=== PATIENT | female | born 1935 | race Caucasian/White ===

== ENCOUNTER 2024-01-22 13:54 | Inpatient (IN) | payer MEDICARE, SELFPAY ==
[2024-01-22] VITALS (15 sets, daily range): BP systolic 152–190; BP diastolic 70–88; PULSE 58–75; RESP 16–18; TEMP 36.5; O2SAT 96–98; BMI 26.1
--- NOTE | 2024-01-22 14:25 | DI.RAD.S_ITS ---
PROCEDURE: XR HIP W PEL IF DONE RT 2V INDICATIONS: fall TECHNIQUE: AP pelvis with lateral view(s) of the right hip(s). COMPARISON: [facility], CT, CT PEL WO CON, 01/22/2024, 15:12. [facility], CR, XR CHEST 1V, 01/22/2024, 15:06. FINDINGS: Bones: There is a moderately to prominently displaced comminuted fracture of the intratrochanteric right hip. Impaction fracture fragments can be seen. No hip dislocation can be seen. No fractures of the bones of the pelvis can be seen. Soft tissues: The visualized bowel gas pattern is normal. No suspicious soft tissue calcifications. IMPRESSION: Intratrochanteric right femoral neck fracture. Dictated by: Ravindra George M.D. on 01/22/2024 at 14:59 Approved by: Ravindra George M.D. on 01/22/2024 at 15:01
--- NOTE | 2024-01-22 15:02 | ED_ITS ---
HPI - Extremity Injury (Lower) General Chief Complaint: Extremity Injury, Lower Stated Complaint: GLF/ R hip pain Time Seen by Provider: 01/22/24 15:02 Source: patient and EMS Mode of arrival: EMS History of Present Illness HPI Narrative: 88-year-old woman who lives at home place with advanced dementia has a pulsed form that indicates comfort care only had a witnessed fall in the dining room landing on her right hip with a significant intertrochanteric fracture. She is brought in by medics. She has not oriented to person time and place. He has not complaining of any pain. Has no recollection of the fall. She does have other bruises such as a healing 1 on her chin that she does not know where it came from. Related Data Home Medications Medication Instructions Recorded Confirmed acetaminophen 325 mg capsule 650 mg PO Q6H PRN Pain, Moderate 01/22/24 01/22/24 (Tylenol) escitalopram oxalate 20 mg tablet 20 mg PO DAILY 01/22/24 01/22/24 loperamide 2 mg capsule 2 mg PO QID PRN Diarrhea 01/22/24 01/22/24 (Anti-Diarrheal (loperamide)) magnesium hydroxide 400 mg/5 mL 30 ml PO BEDTIME PRN Constipation 01/22/24 01/22/24 oral suspension (Milk of Magnesia) memantine 5 mg tablet 10 mg PO BID 01/22/24 01/22/24 Allergies Allergy/AdvReac Type Severity Reaction Status Date / Time Penicillins Allergy Rash Verified 01/22/24 15:12 Review of Systems Review of Systems ROS Unobtainable: Unobtainable due to medical condition and Unobtainable due to mental condition Patient History Medical History (Updated 01/22/24 @ 17:29 by Desire Tinsley MD) Advanced dementia Exam Initial Vital Signs Initial Vital Signs: Vital Signs Pulse Rate 70 01/22/24 14:04 Blood Pressure 190/88 H 01/22/24 14:04 Pulse Oximetry 96 01/22/24 14:04 General: Frail-appearing but, in no acute distress. Able to answer direct questions with nonsensical answers, she is able to speak in full sentences with significant confabulation HEENT: Moist mucous membranes, normal sclera with reactive pupils, she is a bruise that appears 3 to 4-day-old over her chin. No other head trauma is appreciated Neck: No midline cervical spine tenderness Respiratory: Lungs are clear to auscultation, no wheezing no rales no rhonchi. Full and symmetrical air movement Cardiac: Regular rate and rhythm no murmurs no bruits Abdomen: Soft, nontender, good bowel tones, no flank pain Pelvis, no tenderness with pelvic ring manipulation. No tenderness along the thoracic or lumbar vertebra with direct palpation. No tenderness with manipulation of her ribcage Skin: Warm and dry, scattered bruises in various stages of healing. Neurologic: She is able to move all extremities Extremities: Right leg is foreshortened and externally rotated. She is able to move her toes. Is not complaining of pain and she is lying in bed. Distal pulses are palpable she does not have any lower extremity edema Psych: Cooperative, significant dementia with no insight into events of the day Course Orders Ordered: ED Orders 01/22/24 14:25 XR hip w pel if done RT 2V Stat 01/22/24 15:03 CT pelvis wo con Stat XR chest 1V Stat 01/22/24 15:04 EKG-12 Lead Stat 01/22/24 15:07 Complete Blood Count AUTO DIFF Stat Comprehensive Metabolic Panel Stat Hydromorphone HCl (Hydromorphone 0.5 Mg Inj) 0.5 mg IV Q15MIN PRN PRN Reason: Pain, Last Admin: 01/22/24 15:22 Dose: 0.5 mg Documented By: MAHENDRA Sodium Chloride (Normal Saline 0.9%) 1,000 mls @ 150 mls/hr IV CONT NEERAJ Last Admin: 01/22/24 15:16 Dose: 150 mls/hr Documented By: MAHENDRA Vital Signs Vital signs: Vital Signs - 8 hr 01/22/24 14:04 01/22/24 14:04 01/22/24 14:12 Pulse Rate 70 71 Pulse Rate [Right Dorsalis Pedis] Respiratory Rate 18 Blood Pressure 190/88 H 190/88 H Pulse Oximetry 96 98 Oxygen Delivery Method Room Air 01/22/24 14:25 01/22/24 14:30 01/22/24 14:47 Pulse Rate 68 74 Pulse Rate [Right Dorsalis Pedis] 70 Respiratory Rate Blood Pressure Pulse Oximetry 98 98 Oxygen Delivery Method 01/22/24 14:47 01/22/24 15:00 01/22/24 15:00 Pulse Rate 69 Pulse Rate [Right Dorsalis Pedis] Respiratory Rate Blood Pressure 187/79 H 167/76 H Pulse Oximetry 98 Oxygen Delivery Method 01/22/24 15:30 01/22/24 16:00 Pulse Rate 67 73 Pulse Rate [Right Dorsalis Pedis] Respiratory Rate Blood Pressure Pulse Oximetry 98 98 Oxygen Delivery Method MDM - Extremity Injury (Lower) Lab Data 01/22/24 15:07 01/22/24 15:07 Labs: Lab Results 01/22/24 Range/Units 15:07 WBC 14.2 H (4.5-11.0) X10^3/uL RBC 4.20 (4.0-5.2) X10^6/uL Hgb 12.8 (12.0-16.0) g/dL Hct 37.7 (36-46) % MCV 89.8 (80-100) fL MCH 30.5 (26-34) PG MCHC 34.0 (30-36) % RDW 14.1 (11.6-14.8) % Plt Count 236 (150-400) X10^3/uL Neut % (Auto) 80.8 H (50-75) % Lymph % (Auto) 7.5 L (25-40) % [place] % (Auto) 10.4 (3-14) % Eos % (Auto) 0.7 L (2-4) % Baso % (Auto) 0.6 (0-2) % Neut # (Auto) 97143 H (2178-9569) /uL Lymph # (Auto) 1100 (5475-0354) /uL [place] # (Auto) 1500 H (0-900) /uL Eos # (Auto) 100 (0-450) /uL Baso # (Auto) 100 (0-100) /uL Sodium 130 L (137-145) mmol/L Potassium 4.3 (3.4-5.1) mmol/L Chloride 99 (98-107) mmol/L Carbon Dioxide 24 (22-32) mmol/L BUN 19 H (7-17) mg/dL Creatinine 0.60 (0.52-1.04) mg/dL Estimated GFR > 60 (>60) mL/min BUN/Creatinine Ratio 31.7 H (6-22) Glucose 125 H (80-110) mg/dL Calcium 9.1 (8.4-10.2) mg/dL Total Bilirubin 1.3 (0.2-1.3) mg/dL AST 23 (14-36) IU/L ALT 16 (<35) IU/L Alkaline Phosphatase 89 (38-126) U/L Total Protein 6.8 (6.3-8.2) g/dL Albumin 4.0 (3.5-5.0) g/dL Globulin 2.8 (1.7-4.1) g/dL Albumin/Globulin Ratio 1.4 (1.0-2.8) MDM Narrative Medical decision making narrative: CC: Witnessed fall in dementia facility landing on her right hip Complicating co-morbidities: Advanced dementia Data collected from: Medics Social determinants of health that may influence the patients condition: Advanced dementia. Patient does have POLST form that indicates comfort focused treatment only Medical records reviewed: Medical records from home place are reviewed. Patient is on escitalopram and memantine, no blood thinners. No other medical records are available Differential considered: Hip fracture, pelvic fracture, contusion Exam documented above, pertinent findings include: 88-year-old woman who is significantly demented, is not oriented to person time or place. Does not recall a fall is not complaining of any pain. Her right hip is externally rotated and foreshortened. She has a bruise over her chin that looks like it has a couple of days old Lab Test results independently reviewed as above. Pertinent findings: CBC shows Mild leukocytosis at 14.2 with 80% neutrophils no anemia Chemistries show Mild hyponatremia at 130 Independently reviewed EKG: Atrial fibrillation at a rate of 73. No acute ischemia Imaging studies independently reviewed: CT scan of the pelvis shows impacted, comminuted, moderately displaced moderately angulated fracture of the intratrochanteric right femoral neck. Hip x-ray shows an intertrochanteric right femoral neck fracture with prominently displaced and impacted fragments seen. CT scan is ordered in anticipation of operative management Chest x-ray is unremarkable Consultations: Care is reviewed with hospitalist patient will be admitted. Discussed with Dr. Curtis. Unsure if operative intervention will be appropriate or not. Dr. Schumacher is contacted and case is discussed with Dr. Curtis Treatments: Patient has not required any pain control Family discussion: Due to the patient's advanced dementia phone call to her sister who has medical power of supervisor [employer] shop, Domonique sainz at [phone]. This sisters involvement seems to be minimal and her overall understanding and cognitive processing of questions being asked regarding surgical intervention or not do not offer help in overall decision-making. Sister clearly under 2 that this was a big decision, also recognizes that her sister is declining and isn't sure that the operative risk is worth the minimal benefit. Phone call to patient's personal friend, Stephany Bailey who is her financial [id number] at [phone], cell #[phone]. This friend is unwilling to contribute to decision-making and defers to Domonique. It seems like they have a contentious relationship, neither 1 knows the others phone number. Stephany was going to talk with another close friend of the patient's. At this point [place] notes that her cognitive decline is significant, she does not tend to do much more than sit in a chair. Decision as to operative intervention or not is in limbo as of 530 this evening. Patient will be admitted and this discussion will need to continue. Discussion: 88-year-old woman with advanced dementia and a comminuted, displaced intertrochanteric fracture of the right hip after a fall. Her baseline status appears to be significantly demented with minimal overall activity. With her entire visit in the emergency department she has not seemed to notice that she has not moved at all on her gurney and is not complaining of any hip pain. At this time it is not clear whether operative intervention will be the best choice for this lady or whether conservative management and pain control if needed maybe more appropriate. The discussion we will continue with the inpatient team. Discharge Plan Departure Patient Disposition: Admitted As Inpatient Clinical Impression: Closed hip fracture Qualifiers: Encounter type: initial encounter Laterality: right Qualified Code(s): S72.001A - Fracture of unspecified part of neck of right femur, initial encounter for closed fracture Advanced dementia Qualifiers: Dementia type: unspecified type Admit Date/Time: 01/22/24 17:06 Admit Provider: Lance Curtis
--- NOTE | 2024-01-22 15:03 | DI.CT.S_ITS ---
PROCEDURE: CT PEL WO CON INDICATIONS: operative planning Right hip fracture TECHNIQUE: Noncontrast 3 mm axial sections acquired through the bony pelvis, with coronal and sagittal reformatting. COMPARISON: [facility], CR, XR CHEST 1V, 01/22/2024, 15:06. [facility], CR, XR HIP W PEL IF DONE RT 2V, 01/22/2024, 14:26. FINDINGS: Image quality: Excellent. Bones: There is an impacted, comminuted, moderately displaced moderately angulated fracture of the intratrochanteric right femoral neck. No hip dislocation can be seen. No fractures of the bones of the pelvis can be seen. Generalized degenerative changes are seen. No suspicious lytic or blastic lesions are seen. Soft tissues: Associated soft tissue swelling is seen. No dilated loops of small bowel are seen. Distal colonic diverticulosis is seen, without findings of active diverticulitis. An atrophic uterus is seen, with calcified fibroids. No adnexal masses are seen on either side. No bladder wall thickening can be seen. IMPRESSION: Intratrochanteric right femoral neck fracture, with associated surrounding soft tissue swelling. Dictated by: Ravindra Georeg M.D. on 01/22/2024 at 15:34 Approved by: Ravindra George M.D. on 01/22/2024 at 15:36
--- NOTE | 2024-01-22 15:03 | DI.RAD.S_ITS ---
PROCEDURE: XR CHEST 1V INDICATIONS: Trauma TECHNIQUE: One view of the chest was acquired. COMPARISON: [facility], CR, XR HIP W PEL IF DONE RT 2V, 01/22/2024, 14:26. [facility], CT, CT PEL WO CON, 01/22/2024, 15:12. FINDINGS: Surgical changes and devices: None. Lungs and pleura: On this semiupright portable chest examination, no large pneumothorax or large pleural effusions are seen. No focal infiltrates are seen. The lungs are mildly hyperexpanded. Mediastinum: The cardiac contours are within normal limits. The aorta demonstrates calcification and tortuosity. Bones and chest wall: No suspicious bony lesions. Age-appropriate bony degenerative changes are seen. Overlying soft tissues appear unremarkable. IMPRESSION: Portable chest within normal limits for age. Dictated by: Ravindra George M.D. on 01/22/2024 at 15:07 Approved by: Ravindra George M.D. on 01/22/2024 at 15:07
[2024-01-22 15:14] LABS: Add Manual Diff / Slide Review NO; Basophils Absolute Auto 100 /uL (0-100); Basophils Percent Auto 0.6 % (0-2); Eosinophils Absolute Auto 100 /uL (0-450); Eosinophils Percent Auto 0.7 % (2-4); Hematocrit 37.7 % (36-46); Hemoglobin 12.8 g/dL (12.0-16.0); Lymphocytes Absolute Auto 1100 /uL (1100-4500); Lymphocytes Percent Auto 7.5 % (25-40); Mean Corpuscular Hemoglobin 30.5 PG (26-34); Mean Corpuscular Volume 89.8 fL (80-100); Monocytes Absolute Auto 1500 /uL (0-900); Monocytes Percent Auto 10.4 % (3-14); Neutrophils Absolute Auto 11500 /uL (1500-7000); Neutrophils Percent Auto 80.8 % (50-75); Platelet Count 236 X10^3/uL (150-400); Red Cell Distribution Width 14.1 % (11.6-14.8); White Blood Cell Count 14.2 X10^3/uL (4.5-11.0)
[2024-01-22] MEDS: SODIUM CHLORIDE 0.9% 1,000 ML 150 ML IV (15:16)
[2024-01-22] MEDS: HYDROMORPHONE 0.5 MG INJ IV (15:22)
[2024-01-22 15:26] LABS: Alanine Aminotransferase 16 IU/L (<35); Albumin Globulin Ratio 1.4 (1.0-2.8); Alkaline Phosphatase 89 U/L (38-126); Aspartate Aminotransferase 23 IU/L (14-36); BUN Creatinine Ratio 31.7 (6-22); Bilirubin Total 1.3 mg/dL (0.2-1.3); Blood Urea Nitrogen 19 mg/dL (7-17); Calcium 9.1 mg/dL (8.4-10.2); Carbon Dioxide 24 mmol/L (22-32); Chloride 99 mmol/L (98-107); Estimated Glomerular Filt Rate > 60 mL/min (>60); Globulin 2.8 g/dL (1.7-4.1); Glucose 125 mg/dL (80-110); HEMOLYSIS 32 (0-50); Potassium 4.3 mmol/L (3.4-5.1); Sodium 130 mmol/L (137-145); Total Protein 6.8 g/dL (6.3-8.2)
--- NOTE | 2024-01-22 16:17 | PM.HP.1 ---
History of Present Illness History of Present Illness Date Patient Seen: 01/22/24 Chief complaint: GLF/ R hip pain Narrative: The patient is an 88-year-old female who presents with a ground level fall and hip fracture. She denies any other injury. She states that she lives alone. She appears to have some degree of cognitive impairment. Laboratory testing also reveals a leukocytosis and a sodium of 130. She is mild hyperglycemia. She is also hypertensive initially at 190/88. She has fairly severe cognitive impairment and apparently stays in a memory care unit in [place]. She is noted to have probable atrial fibrillation in the emergency department. Her chronic medications appear to include amantadine and citalopram. The patient denies any complaints other than her right hip. She really can not detail the nature of the fall. She denies any dyspnea or chest pain. Discussed with orthopedics, Dr. Schumacher. The earliest that she would have repair would be tomorrow evening. She can be NPO after being evaluated tomorrow morning from his opinion. [facility] Medical History (Updated 01/22/24 @ 17:49 by Maryuri Lund RN) History of depression Advanced dementia Meds Home Medications and Allergies Home Medications Medication Instructions Recorded Confirmed Type acetaminophen 325 mg capsule 650 mg PO Q6H PRN Pain, Moderate 01/22/24 01/22/24 History (Tylenol) escitalopram oxalate 20 mg tablet 20 mg PO DAILY 01/22/24 01/22/24 History loperamide 2 mg capsule 2 mg PO QID PRN Diarrhea 01/22/24 01/22/24 History (Anti-Diarrheal (loperamide)) magnesium hydroxide 400 mg/5 mL 30 ml PO BEDTIME PRN Constipation 01/22/24 01/22/24 History oral suspension (Milk of Magnesia) memantine 5 mg tablet 10 mg PO BID 01/22/24 01/22/24 History Allergies Allergy/AdvReac Type Severity Reaction Status Date / Time Penicillins Allergy Rash Verified 01/22/24 15:12 Review of Systems Review of Systems Narrative: All else reviewed and otherwise unremarkable except as noted in the history and physical. Exam Vital Signs (past 8 hours): - 01/22/24 14:04 01/22/24 14:04 01/22/24 14:12 Pulse Rate 70 71 Pulse Rate [Right Dorsalis Pedis] Respiratory Rate 18 Blood Pressure 190/88 H 190/88 H Pulse Oximetry 96 98 Oxygen Delivery Method Room Air 01/22/24 14:25 01/22/24 14:30 01/22/24 14:47 Pulse Rate 68 74 Pulse Rate [Right Dorsalis Pedis] 70 Respiratory Rate Blood Pressure Pulse Oximetry 98 98 Oxygen Delivery Method 01/22/24 14:47 01/22/24 15:00 01/22/24 15:00 Pulse Rate 69 Pulse Rate [Right Dorsalis Pedis] Respiratory Rate Blood Pressure 187/79 H 167/76 H Pulse Oximetry 98 Oxygen Delivery Method 01/22/24 15:30 01/22/24 16:00 Pulse Rate 67 73 Pulse Rate [Right Dorsalis Pedis] Respiratory Rate Blood Pressure Pulse Oximetry 98 98 Oxygen Delivery Method Oxygen Delivery Method Room Air Narrative Exam Narrative: NAD, alert and oriented, fluent speech, calm. Normocephalic skull, EOMI, anicteric sclera, symmetric pupils. Oropharynx unremarkable, no droop. Neck supple, midline trachea, no adenopathy. Lungs clear, normal rate and effort. Heart regular, no murmur gallop or rub. Abdomen is soft, non distended and non tender. Extremities are free of edema. She has internal rotation of the right hip. Skin is free of rash or lesions. Joints are not swollen or deformed. Judgment appears to be normal. Objective Imaging Right hip x-ray: Radiologist's impression: Reveals a right femoral neck fracture. Labs 01/22/24 15:07 01/22/24 15:07 Labs: Laboratory Results - last 24 hr 01/22/24 15:07 WBC 14.2 H RBC 4.20 Hgb 12.8 Hct 37.7 MCV 89.8 MCH 30.5 MCHC 34.0 RDW 14.1 Plt Count 236 Neut % (Auto) 80.8 H Lymph % (Auto) 7.5 L [place] % (Auto) 10.4 Eos % (Auto) 0.7 L Baso % (Auto) 0.6 Neut # (Auto) 91638 H Lymph # (Auto) 1100 [place] # (Auto) 1500 H Eos # (Auto) 100 Baso # (Auto) 100 Sodium 130 L Potassium 4.3 Chloride 99 Carbon Dioxide 24 BUN 19 H Creatinine 0.60 Estimated GFR > 60 BUN/Creatinine Ratio 31.7 H Glucose 125 H Calcium 9.1 Total Bilirubin 1.3 AST 23 ALT 16 Alkaline Phosphatase 89 Total Protein 6.8 Albumin 4.0 Globulin 2.8 Albumin/Globulin Ratio 1.4 Assessment & Plan Assessment & Plan narrative: 1. Right femoral neck fracture, present on admission and active. 2. Ground level fall, present on admission and active. 3. Probable hypovolemic hyponatremia, present on admission and active 4. Mild hyperglycemia, present on admission and active. 5. Possible chronic atrial fibrillation not on anticoagulation, present on admission and active. 6. Severe dementia, present on admission and active. PLAN: -orthopedic consult for operative repair of fracture. -DVT prophylaxis. -analgesia. -fluid resuscitation and monitor sodium. Patient is full resuscitation. Anticipate discharge to half-way facility for rehabilitation after surgery. Her proxy decision maker is not currently identified. A pulsed indicates comfort measures, she can not speak to this. Patient was admitted to inpatient, anticipation of 2 midnights of medically necessary hospital level care. Time Spent With Patient Time with patient: 30 to 49 minutes with 50% spent counseling/coordinating care Quality MIPS - Admit I confirm the patient?s Advance Care Plan is present, Code status is documented, Surrogate decision maker is in patient?s record [If Yes, STOP here]: Yes MIPS - Meds 'Current medications' to include all prescriptions, [id number] products, herbals, cannabis/cannabidiol products, and vitamin/mineral/dietary (nutritional) supplements. I have utilized all available resources to obtain, update, or review the patient?s current medications. [If Yes, STOP here]: Yes
--- NOTE | 2024-01-22 19:23 | PC.NURSE ---
Patient admitted to room 221, she has a fx r.hip. She fell at home place around lunch time and this was a witnessed fall. Patient has some dementia and is pleasantly forgetful. She has foul smelling urine. aware and ordered some antibiotics and we will also get a urine sample sent down. She is comfortable at this time and has NS at 50cc/hr infusing.
[2024-01-22] MEDS: HEPARIN 5,000 UNIT/ML VIAL 5000 UNIT SUBCUT (20:13)
[2024-01-22] MEDS: MEMANTINE HCL 5 MG TABLET 10 MG PO (20:13)
[2024-01-22] MEDS: SENNOSIDES 8.6 MG TABLET 17.2 MG PO (20:13)
[2024-01-22] MEDS: cefTRIAXone 1,000 MG in SODIUM CHLORIDE 0.9% 100 ML 200 MG IV (20:14)
[2024-01-22] MEDS: OXYCODONE IR 5 MG TABLET PO (20:14)
[2024-01-22] MEDS: SODIUM CHLORIDE 0.9% 1,000 ML 50 ML IV (20:29)
[2024-01-23] VITALS (14 sets, daily range): BP systolic 118–157; BP diastolic 51–76; PULSE 77–92; RESP 12–18; TEMP 36.1–37.2; O2SAT 94–98; BMI 26.1
--- NOTE | 2024-01-23 | DI.RAD.S_ITS ---
PROCEDURE: XR HIP W PEL IF DONE RT 4V INDICATIONS: IM NAILING RIGHT FEMUR TECHNIQUE: Multiple intraoperative views of the right hip. COMPARISON: [facility], [facility], XR HIP W PEL IF DONE RT 2V, 01/22/2024, 14:26. FINDINGS: Bones: Intraoperative images during ORIF of a right intertrochanteric fracture. IMPRESSION: Intraoperative views during ORIF of a right intertrochanteric fracture. Dictated by: Golden Holland M.D. on 01/23/2024 at 20:38 Approved by: Golden Holland M.D. on 01/23/2024 at 20:39
--- NOTE | 2024-01-23 01:30 | PC.NURSE ---
Patient has not voided since coming up to floor. This bond writer did a bladder scan and got 687mL. RN notified
[2024-01-23 03:07] LABS: Appearance Urine UA CLOUDY; Bilirubin Urine UA NEGATIVE (NEGATIVE); Color Urine UA YELLOW; Glucose Urine UA NEGATIVE (Negative); Ketones Urine UA NEGATIVE (NEGATIVE); Leukocyte Esterase Urine UA 2+ (NEGATIVE); Nitrite Urine UA POSITIVE (Negative); Occult Blood Urine UA TRACE-INTACT (Negative); Protein Urine UA NEGATIVE (Negative); Urobilinogen Urine UA 0.2 E.U./dL (0.2)
[2024-01-23 03:23] LABS: RBC Urine None Seen (0-5/HPF); Urine Volume 10mL (spun); WBC Urine 10-30/HPF (0-5/HPF)
[2024-01-23 03:24] LABS: Bacteria Urine Many (>30); Culture Indicated Urine Specimen Cultured; Squamous Epithelial Cell Urine 0-1 /HPF (0-5/HPF)
[2024-01-23 04:46] LABS: Add Manual Diff / Slide Review NO; Basophils Absolute Auto 0 /uL (0-100); Basophils Percent Auto 0.2 % (0-2); Eosinophils Absolute Auto 0 /uL (0-450); Hematocrit 31.4 % (36-46); Hemoglobin 10.8 g/dL (12.0-16.0); Lymphocytes Absolute Auto 900 /uL (1100-4500); Lymphocytes Percent Auto 6.3 % (25-40); Mean Corpuscular HGB Conc 34.3 % (30-36); Mean Corpuscular Hemoglobin 30.8 PG (26-34); Mean Corpuscular Volume 89.9 fL (80-100); Monocytes Absolute Auto 2000 /uL (0-900); Monocytes Percent Auto 13.8 % (3-14); Neutrophils Absolute Auto 11700 /uL (1500-7000); Neutrophils Percent Auto 79.7 % (50-75); Platelet Count 199 X10^3/uL (150-400); Red Blood Cell Count 3.49 X10^6/uL (4.0-5.2); White Blood Cell Count 14.7 X10^3/uL (4.5-11.0)
[2024-01-23 04:59] LABS: BUN Creatinine Ratio 32.8 (6-22); Blood Urea Nitrogen 20 mg/dL (7-17); Calcium 8.6 mg/dL (8.4-10.2); Carbon Dioxide 25 mmol/L (22-32); Chloride 101 mmol/L (98-107); Estimated Glomerular Filt Rate > 60 mL/min (>60); Glucose 151 mg/dL (80-110); HEMOLYSIS < 15 (0-50); Potassium 4.2 mmol/L (3.4-5.1); Sodium 131 mmol/L (137-145)
--- NOTE | 2024-01-23 05:39 | PC.NURSE ---
Pt had a bladder scan of 687, notified, orders taken to insert a kirkland catheter. Pt friend Stephany Bailey came in today to drop off Health care directive, Medical durable power of workers compensation defense attorney and Financial power of workers compensation defense attorney. He phone number is [phone]. According to Stephany pt's sister is the DPOA and is she is not involve in patients care and would not make any health decisions.
--- NOTE | 2024-01-23 08:01 | PM.CN ---
History of Present Illness Consult details Date Patient Seen: 01/23/24 Time Patient Seen: 08:01 Chief complaint: GLF/ R hip pain Narrative: 88-year-old female suffers from dementia fell resulting in an injury of her right hip. When talking to the patient today she recalls falling but states that she did not hurt her hip denies any hip pain does not seem realize that she sustained a significant fracture to her right hip. Unsure what her ambulatory status was before fall. Patient unable to tell me. Meds Home Medications and Allergies Home Medications Medication Instructions Recorded Confirmed Type acetaminophen 325 mg capsule 650 mg PO Q6H PRN Pain, Moderate 01/22/24 01/22/24 History (Tylenol) escitalopram oxalate 20 mg tablet 20 mg PO DAILY 01/22/24 01/22/24 History loperamide 2 mg capsule 2 mg PO QID PRN Diarrhea 01/22/24 01/22/24 History (Anti-Diarrheal (loperamide)) magnesium hydroxide 400 mg/5 mL 30 ml PO BEDTIME PRN Constipation 01/22/24 01/22/24 History oral suspension (Milk of Magnesia) memantine 5 mg tablet 10 mg PO BID 01/22/24 01/22/24 History Allergies Allergy/AdvReac Type Severity Reaction Status Date / Time Penicillins Allergy Rash Verified 01/22/24 15:12 Exam Vital Signs (past 8 hours): - 01/23/24 03:00 Temperature 97.1 F L Pulse Rate 80 Respiratory Rate 16 Blood Pressure 121/68 Pulse Oximetry 96 Oxygen Flow Rate 0 Oxygen Delivery Method Room Air Oxygen Flow Rate 0 Narrative Exam Narrative: On exam right leg is held in a shortened and rotation position. No pain with range of motion of the left leg. No sign of any swelling or instability to bilateral knees or ankles. Positive dorsiflexion and plantar flexion. Palpable pedal pulses. Skin is intact compartments are soft. Objective Labs 01/23/24 04:20 01/23/24 04:20 Labs: Laboratory Results - last 24 hr 01/22/24 01/23/24 01/23/24 15:07 02:48 04:20 WBC 14.2 H 14.7 H RBC 4.20 3.49 L Hgb 12.8 10.8 L Hct 37.7 31.4 L MCV 89.8 89.9 MCH 30.5 30.8 MCHC 34.0 34.3 RDW 14.1 14.0 Plt Count 236 199 Neut % (Auto) 80.8 H 79.7 H Lymph % (Auto) 7.5 L 6.3 L [place] % (Auto) 10.4 13.8 Eos % (Auto) 0.7 L 0.0 L Baso % (Auto) 0.6 0.2 Neut # (Auto) 31711 H 16124 H Lymph # (Auto) 1100 900 L [place] # (Auto) 1500 H 2000 H Eos # (Auto) 100 0 Baso # (Auto) 100 0 Sodium 130 L 131 L Potassium 4.3 4.2 Chloride 99 101 Carbon Dioxide 24 25 BUN 19 H 20 H Creatinine 0.60 0.61 Estimated GFR > 60 > 60 BUN/Creatinine Ratio 31.7 H 32.8 H Glucose 125 H 151 H Calcium 9.1 8.6 Total Bilirubin 1.3 AST 23 ALT 16 Alkaline Phosphatase 89 Total Protein 6.8 Albumin 4.0 Globulin 2.8 Albumin/Globulin Ratio 1.4 Urine Color Yellow Urine Appearance Cloudy Urine pH 7.0 Ur Specific [place] 1.020 Urine Protein Negative Urine Glucose (UA) Negative Urine Ketones Negative Urine Occult Blood Trace-intact Urine Nitrate Positive H Urine Bilirubin Negative Urine Urobilinogen 0.2 Ur Leukocyte Esterase 2+ H Urine RBC None seen Urine WBC 10-30/hpf H Ur Squamous Epith Cells 0-1 /hpf Urine Bacteria Many (>30) H Ur Culture Indicated? Specimen cultured Vol Urine Centrifuged 10ml (spun) [facility] Medical History History of depression Advanced dementia Social History household members: none Tobacco & Substance Use Smoking Status: Never smoker alcohol intake: current Assessment & Plan Assessment & Plan narrative: 88-year-old female with dementia status post fall resulting in a comminuted intertrochanteric proximal femur fracture on the right. Based on the fracture pattern this would require surgical intervention. But will also need approval from her power of employment law attorney if they can be reached. Patient will need to be NPO at this time pending possible surgery if patient is cleared for surgery and the power of employment law attorney agrees to proceed with surgical intervention.
[2024-01-23] MEDS: ESCITALOPRAM 10 MG TABLET 20 MG PO (08:31)
[2024-01-23] MEDS: MEMANTINE HCL 5 MG TABLET 10 MG PO ×2 (08:31→21:52)
[2024-01-23] MEDS: SODIUM CHLORIDE 0.9% 1,000 ML 50 ML IV ×2 (08:32→18:20)
--- NOTE | 2024-01-23 09:23 | CM.DANOTE ---
Addendum entered by CARLOTA Castelan 01/23/24 11:31: ADD: SW met bedside with pt and her good local friend/financial POA Stephany ([phone]) and Stephany states she also feels pt should have surgery but aware that sister/medical POA Domonique will need to give her consent once Ortho calls. Discussed with Stephany the process post surgery with PT/OT towards determining return to [facility] vs SNF. BF Original Note: Patient is an 88 yo female who was admitted on 01/22/24 for GLF/Fx. Pt has MCR for insurance and her PCP is not listed. EMR was reviewed. Per MD, pt with GLF at her facility and hip fx and pt with hx of dementia and UTI. Ortho Consult pending, recommending surgical intervention but need to confirm with medical POA. SW received a call from Tanya at [facility] in [place] ([phone]) and she confirms pt is a resident there for the past 5 months and ambulates independently without DME and pt gets assist with meds, meal prep, and showering although pt does not like to shower or change her clothes although she could independently manage clothing changes herself. Pt pleasant and cooperative at baseline but with moderate dementia. Tanya updated on awaiting confirmation of hip surgery and then PT/OT to determine return with HH vs SNF and they would be agreeable with considering pt return pending her mobility and assist needs. Tanya confirms medical POA is sister Domonique who has been very involved and available for communication and financial POA is friend Stephany. MOISES confirmed copies of medical POA as Domonique, financial POA as Stephany, and advanced directives in pt chart and scanned into EMR. MOISES spoke to pt's sister/POA Domonique and updated on above and she is still waiting from a call from Ortho to discuss surgery risks and benefits but she confirms pt was quite mobile at baseline and likely would want surgery to increase potential for ongoing quality of life and mobility. MOISES explained SNF vs [facility] with HH pending PT/OT and Domonique denies pt having any hx of SNF in the past. MOISES provided the SNF Choice list via phone and sister confirms that currently her preference would be [facility] or [facility] due to location. PASRR done in anticipation of SNF, exempted hospital discharge. If SNF at d/c, will need MD signature and be faxed to [facility] coordinator just for review. Plan: SW to follow closely today to confirm if DPOA agreeable with surgery and then PT/OT eval and recommendations to determine SNF vs [facility] with HH. SW to coordinate closely with sister DPRICKY Youssef and Tanya at [facility]. CARLOTA Castelan Discharge Planning/Care Management CM Discharge Assessment Start: 01/23/24 09:09 Freq: Status: Active Protocol: Document 01/23/24 09:09 BF (Rec: 01/23/24 09:23 [id number]) Discharge Planning Assessment Assigned Wool Washer CARLOTA Fierro DPOA/Assigned Designee Name sister Domonique Contact Information [phone] Advance Directives? Yes: pt could not answer Advance Directives on File Yes History Provided By Patient,Family Member,Medical Record Has Patient been admitted in last 30 No days? Prior Living Arrangements Assisted Living Comment [facility] Household Members none Type of transporation used prior to Relies on Others admit Facility Name Admitted From: [facility] Independent with ADL's No Is patient alert and oriented? No Needs Assistance With Bathing,Meal Prep,Managing Medications,Home Chores / Shopping Caregiver for Another No Comment walks independently with no DME Patient/Family Preference [facility]dc Facility,Home with Home Health Comment SNF vs [facility] with HH pending progress post surg Barriers to Discharge No Discharge Plan [facility] Facility [facility] Physical Therapy Transportation Arrangement facility van if SNF, friend if return to [facility] Additional Comment Pending surgery and then PT/OT recommendations Medicare Choice List Provided Yes Medicare choice list reviewed on family electronic tablet with SNF/HH Preference [facility] or [place] Has Agency SNF been contacted Yes Whiteboard Updated in Patient Room with Yes name and ext. # of Wool Washer Review Status In Process Please Provide Date Initial DC 01/23/24 Assessment Was Performed Next Review Type Continued Stay Review
--- NOTE | 2024-01-23 09:50 | PT-OP ANOTE ---
Hold pt, per ortho consult, pt may require surgery. Surgeon is contacting the power of energy attorney. Hold until decision is made w/ortho.
--- NOTE | 2024-01-23 10:25 | OT.IPNOTE ---
OT eval and treat order received. Pt is planned for OR today with hip fx. Will discharge order and await new order after sx.
[2024-01-23] MEDS: ACETAMINOPHEN 325 MG TABLET 650 MG PO (10:53)
--- NOTE | 2024-01-23 15:03 | PM.PN.1 ---
Subjective Subjective Interval history: 88 F with PMH of dementia admitted with a hip fx. She has no complaints this morning, cannot recall why she is in the hospital. Denies pain at her hip today. Exam Vital Signs (past 8 hours): - 01/23/24 09:03 Temperature 98.9 F Pulse Rate 85 Respiratory Rate 18 Blood Pressure 118/63 Pulse Oximetry 97 Oxygen Flow Rate 0 Oxygen Delivery Method Room Air Oxygen Flow Rate 0 Narrative Exam Narrative: Gen: no acute distress Pulm: CTA B/l, no distress CV: RRR no m/r/g Abd: S NT ND Ext: no edema Objective Labs 01/23/24 04:20 01/23/24 04:20 Labs: Laboratory Results - last 24 hr 01/22/24 01/23/24 01/23/24 15:07 02:48 04:20 WBC 14.2 H 14.7 H RBC 4.20 3.49 L Hgb 12.8 10.8 L Hct 37.7 31.4 L MCV 89.8 89.9 MCH 30.5 30.8 MCHC 34.0 34.3 RDW 14.1 14.0 Plt Count 236 199 Neut % (Auto) 80.8 H 79.7 H Lymph % (Auto) 7.5 L 6.3 L [place] % (Auto) 10.4 13.8 Eos % (Auto) 0.7 L 0.0 L Baso % (Auto) 0.6 0.2 Neut # (Auto) 59312 H 63657 H Lymph # (Auto) 1100 900 L [place] # (Auto) 1500 H 2000 H Eos # (Auto) 100 0 Baso # (Auto) 100 0 Sodium 130 L 131 L Potassium 4.3 4.2 Chloride 99 101 Carbon Dioxide 24 25 BUN 19 H 20 H Creatinine 0.60 0.61 Estimated GFR > 60 > 60 BUN/Creatinine Ratio 31.7 H 32.8 H Glucose 125 H 151 H Calcium 9.1 8.6 Total Bilirubin 1.3 AST 23 ALT 16 Alkaline Phosphatase 89 Total Protein 6.8 Albumin 4.0 Globulin 2.8 Albumin/Globulin Ratio 1.4 Urine Color Yellow Urine Appearance Cloudy Urine pH 7.0 Ur Specific [place] 1.020 Urine Protein Negative Urine Glucose (UA) Negative Urine Ketones Negative Urine Occult Blood Trace-intact Urine Nitrate Positive H Urine Bilirubin Negative Urine Urobilinogen 0.2 Ur Leukocyte Esterase 2+ H Urine RBC None seen Urine WBC 10-30/hpf H Ur Squamous Epith Cells 0-1 /hpf Urine Bacteria Many (>30) H Ur Culture Indicated? Specimen cultured Vol Urine Centrifuged 10ml (spun) [facility] Medical History History of depression Advanced dementia Social History household members: none Smoking Status: Never smoker alcohol intake: current Assessment & Plan Assessment & Plan narrative: 1. Right femoral neck fracture, present on admission and active. 2. Ground level fall, present on admission and active. 3. Probable hypovolemic hyponatremia, present on admission and active 4. Mild hyperglycemia, present on admission and active. 5. Possible chronic atrial fibrillation not on anticoagulation, present on admission and active. 6. Severe dementia, present on admission and active. 7. Possible acute cystitis PLAN: -orthopedic consult for operative repair of fracture, plan hopeful for today. -DVT prophylaxis. -analgesia. -fluid resuscitation and monitor sodium, improved Na from 130 to 131. Will continue fluids while NPO, monitor after surgery. -UA positive, will treat with ceftriaxone for 3 days. Patient is DNR Anticipate discharge to [facility] facility for rehabilitation after surgery. Patient has DPOA on file, Domonique, sister Patient was admitted to inpatient, anticipation of 2 midnights of medically necessary hospital level care. Discussed with case managment and bedside staff along with previous hospitalist on duty to formulate the above assessment and plan.
--- NOTE | 2024-01-23 18:31 | SUR.OPER ---
Head on pillow. Supine on fracture table with operative leg secured in traction. Other leg secured on leg zimmerman padded with gel. Right arm across chest, secured with tape. Left arm extended <90 degrees on padded arm board, secured with foam strap. dr. Schumacher present for and approved of positioning.
--- NOTE | 2024-01-23 18:31 | PM.PREOP ---
Pre-operative Note Interval Note History & Physical reviewed/Exam performed by Physician: Yes Changes to H&P: No
[2024-01-23] MEDS: LIDOCAINE 1% W/EPI 20 ML INJ (19:33)
[2024-01-23] MEDS: BUPIVACAINE 0.5% (PF) 30 ML, EPINEPHrine 0.15 MG INJ (19:57)
--- NOTE | 2024-01-23 20:23 | PM.OP.1 ---
Operative Date/Time/Diagnoses Date of procedure: 01/23/24 Time of procedure: 19:00 Pre-op diagnosis: Highly comminuted proximal femur fracture Post-op diagnosis: same Procedure & Clinicians Procedure: Intramedullary fixation of a proximal femur fracture Same procedure as scheduled: Yes Indications: Comminuted intertrochanteric femur fracture Surgeon: Jeff Schumacher Click Yes if Unassisted: Yes Anesthesia Type: General Operative Notes Findings: Comminuted proximal femur fracture Closure Type: primary Applied: implant(s) ([employer] short nail) Estimated Blood Loss (mL): 50 Procedure in detail: On date of service patient was met in the holding area where his operative site was signed and witnessed by the OR staff. Surgery was once again discussed with the patient in remaining questions or concerns he had were answered fully. Patient was taken back to the operating theater. Spinal anesthesia was administered and then patient was transferred to the fracture table. Great care was taken to ensure that all bony prominences were appropriately padded. Both legs were placed into traction boots but only the right leg was placed under distraction and internal rotation in order to reduce the fracture. C-arm was brought in to verify reduction the fracture. Once we were satisfied with overall reduction, the right leg was prepped and draped in the normal sterile fashion. Ten blade was used to incise through skin and fascial tissue. Deep knife was then used to incise through the ITB band. Guidewire was placed on the greater tuberosity and entered in to the canal. This was verified with C-arm. Entry Reamer was used to ream the entry hole. A 10 mm nail was placed. The depth of the nail was verified under C-arm. Once we are satisfied with the depth a guidewire was placed into the femoral head and its position was verified with AP and lateral views. This was measured and then drilled. Patient measured 105 mm. Next, 105 mm screw was placed into the femoral head and this was verified in the lateral and AP views with the C-arm. A lag screw was placed as well for additional compression. Once we are satisfied with the 2 screws into the proximal femur the distal screw was placed in the static hole. C-arm was used to verify positioning while this was drilled and a 30 mm screw was used to lock the nail distally. A proximal locking screw was placed locking the proximal screw into position. Final x-rays were obtained. The 3 separate wound was copiously irrigated and then closed in a layered fashion. Patient's leg was cleaned, dried, and dressed. Patient was taken off the fracture table transferred to a stretcher and taken to the PACU in stable condition. Complications: none Post-operative Condition: stable Disposition: Acute Care Plan for aftercare: Patient can be weight-bearing as tolerated to the right lower extremity.
[2024-01-23] MEDS: LACTATED RINGERS 1,000 ML 100 ML IV (20:50)
[2024-01-23] MEDS: cefTRIAXone 1,000 MG in SODIUM CHLORIDE 0.9% 100 ML 200 MG IV (21:43)
[2024-01-23] MEDS: DOCUSATE 100 MG CAPSULE PO (21:52)
[2024-01-23] MEDS: SENNOSIDES 8.6 MG TABLET 17.2 MG PO (21:52)
--- NOTE | 2024-01-23 22:58 | PC.NURSE ---
Patient returned to room 221 from PACU via bed following right hip pinning. She is awake and responsive but knew only her name, birthdate and that she had fallen. Breath sounds CTA with RA sat of 95%. HRR w/initial BP being elevated but most recent BP is 122/56. Denies nausea. BT present and abdomen is soft. Indwelling catheter is patent and clear dark pastora. She is needing to be repositioned q2h as not moving herself. Dressing to right hip is CDI; per Abigail, FINANCIAL REPORTING SPECIALIST, original dressing was changed due to significant bleeding and Dr. Baig was informed but did not want to be any additional magi in so additional steri-strips were placed and redressedl; has ice pack to right lateral hip. Denies pain. Bilateral calf SCD's were applied upon arrival back to room. Did note that right leg is internally rotated. Patient has good pedal pulse, toes are warm with good cap refill, is able to wiggle her toes but unable to lift her left off bed. Fall risk score is high and bed alarm is activated.
[2024-01-24] MEDS: CEFAZOLIN 2 GM/100 ML PREMIX 100 ML IV ×2 (02:56→11:24)
[2024-01-24 04:06] VITALS: BP 124/46; PULSE 77; RESP 16; TEMP 37.4; O2SAT 97
[2024-01-24 05:22] LABS: Add Manual Diff / Slide Review NO; Basophils Absolute Auto 0 /uL (0-100); Basophils Percent Auto 0.1 % (0-2); Eosinophils Absolute Auto 0 /uL (0-450); Hematocrit 25.2 % (36-46); Hemoglobin 8.7 g/dL (12.0-16.0); Lymphocytes Absolute Auto 900 /uL (1100-4500); Lymphocytes Percent Auto 6.7 % (25-40); Mean Corpuscular HGB Conc 34.5 % (30-36); Mean Corpuscular Hemoglobin 31.3 PG (26-34); Mean Corpuscular Volume 90.7 fL (80-100); Monocytes Absolute Auto 2100 /uL (0-900); Monocytes Percent Auto 15.8 % (3-14); Neutrophils Absolute Auto 10300 /uL (1500-7000); Neutrophils Percent Auto 77.4 % (50-75); Platelet Count 166 X10^3/uL (150-400); Red Blood Cell Count 2.78 X10^6/uL (4.0-5.2); White Blood Cell Count 13.4 X10^3/uL (4.5-11.0)
[2024-01-24 05:38] LABS: BUN Creatinine Ratio 27.7 (6-22); Blood Urea Nitrogen 18 mg/dL (7-17); Calcium 8.2 mg/dL (8.4-10.2); Carbon Dioxide 22 mmol/L (22-32); Chloride 105 mmol/L (98-107); Estimated Glomerular Filt Rate > 60 mL/min (>60); Glucose 142 mg/dL (80-110); HEMOLYSIS < 15 (0-50); Potassium 4.2 mmol/L (3.4-5.1); Sodium 133 mmol/L (137-145)
[2024-01-24 08:50] VITALS: BP 111/44; PULSE 83; RESP 18; TEMP 36.4; O2SAT 97
--- NOTE | 2024-01-24 09:00 | PT.IIE ---
Current Diagnoses Fracture of unspecified part of neck of right femur, initial encounter for closed fracture (01/22/24) Surgery Performed Operation Date: 01/23/24 18:00 Actual Procedures p RIGHT PROXIMAL FEMUR INTERMEDULLARY FIXATION(Right) - Jeff Schumacher MD Medical History (Last Reviewed 01/23/24 @ 08:02 by Jeff Schumacher MD) Advanced dementia History of depression Physical Therapy Inpatient Evaluation/Re-Eval M1 PT/OT-IP Prior Functional Status Start: 01/24/24 12:06 Freq: NEEDED Status: Active Protocol: Document 01/24/24 09:00 AB (Rec: 01/24/24 12:26 AB [id number]) Medical Review Prior Functional Status Medical History Reviewed Yes Communication with confusion but able to follow directions Mobility and Gait pt stated that she lives alone but from EMR: pt lives in a memory care facility. Confirmed with case folder: pt lives at [facility] and was independent with ambulation without AD Social History Household Members none Living Arrangements Assisted Living Number of Stairs To Enter/Railing? pt lives at [facility] Home Environment Walk in Shower M2 PT-IP Current Condition Start: 01/24/24 12:06 Freq: NEEDED Status: Active Protocol: Document 01/24/24 09:00 AB (Rec: 01/24/24 12:26 AB [id number]) Physical Therapy Current Condition Current Condition Evaluation Date 01/24/24 Treatment Diagnosis s/p R hip ORIF; difficulty in walking Onset Date 01/22/24 M3 PT-IP Subjective Start: 01/24/24 12:06 Freq: NEEDED Status: Active Protocol: Document 01/24/24 09:00 AB (Rec: 01/24/24 12:26 AB [id number]) Subjective Physical Therapy Visit Type Type Initial Evaluation Visit Start Time 09:00 Visit Stop Time 09:40 Number of GAS CONTROLLER Visits 0 Physical Therapy Visit Comments Patient Comments agreeable to do PT Therapy Pain Assessment Pain When Pain Assessed During Mobility Location right hip Scale Used pain scale not stated Pain Management Techniques Distraction,Modification of Treatment,Re-positioning, Timing of Activity with Medications M4 PT-IP Mobility and Gait Start: 01/24/24 12:06 Freq: NEEDED Status: Active Protocol: Document 01/24/24 09:00 AB (Rec: 01/24/24 12:26 AB [id number]) PT-Bed Mobility Assessment Supine to Sit Supine to Sit Maximum Assistance,2 Person Assistance,Head of Bed Elevated,Bedrails Sit to Supine Sit to Supine Total Assistance,2 Person Assistance Scooting Scooting to Edge of Bed Dependent PT-Transfer Assessment Sit to and From Stand Sit to and from Stand Maximum Assistance,2 Person Assistance,Use of Upper Extremities Equipment Transfer Assistive Device Gait Belt,Front Wheeled Walker Orthotic/Prosthetic Devices or Brace: No Comments Mobility Comments pt supine in bed and agreeable to get out of the bed. pt with cognitive issues but able to follow directions. BP in suine: 123/55. MMT completed. RLE in internal rotation and with R knee valgus. pt completed supine to sit max A x 2 and max cues. c/o increase R hip pain. presents with increase trunk and LE tightening with movement. total A x 2 for scooting to EOB. pt was able to sit on EOB max A for initial sitting but able to sit with mod A after repositioning. R LE in internal rotation with accentuated R knee valgus despite repositioning. BP in sitting 122/53. pt completed sit to stand max A x 2 and max cues. only tolerated ~ 3 sec of standing and pt sat back on EOB. pt with increase RLE interal rotation in standing and nurse aware. completed sit to stand again max A x 2 and max cues. attempted step transfer to chair using fWW but pt unable to complete with (+) R knee buckling. sat pt on EOB. pt stated that she is feeling faint. BP checked: 84/37. assisted pt back to bed total A x 2 and max cues. positioned pt in bed. call light and table placed within reach. Gait Assessment Comments Gait Comments unable at this time PT-Balance Assessment Sitting Balance and Reactions Static Sitting Balance Ability Fair Dynamic Sitting Balance Ability Poor Standing Balance and Reactions Static Standing Balance Ability Poor Dynamic Standing Balance Ability Poor Device Used FWW M5 PT-IP Objective Assessments Start: 01/24/24 12:06 Freq: NEEDED Status: Active Protocol: Document 01/24/24 09:00 AB (Rec: 01/24/24 12:26 AB [id number]) Orientation Orientation/Cognition Level of Alertness Alert Orientation Name,Birthday Safety Awareness Decreased Safety Awareness Memory Description Short Term Impaired,Long-Term Impaired Gross Range of Motion Lower Extremity ROM Assessment Within Functional Limits Strength Lower Extremity Strength Assessment Right Impaired Hip 3-/5 Knee 3+/5 Ankle 3+/5 Sensation Assessment Sensation Gross Sensation WNL Muscle Tone Muscle Tone WNL Yes M6 PT-IP Treatment Start: 01/24/24 12:06 Freq: NEEDED Status: Active Protocol: Document 01/24/24 09:00 AB (Rec: 01/24/24 12:26 AB [id number]) Physical Therapy Treatment Education Education Provided Precautions,Weight Bearing Status,Post-Op Packet,Safety M7 PT-IP Assessment and Plan Start: 01/24/24 12:06 Freq: NEEDED Status: Active Protocol: Document 01/24/24 09:00 AB (Rec: 01/24/24 12:26 AB [id number]) PT Summary Assessment and Plan Potential Rehabilitation Potential Fair Status of Condition at Evaluation Unstable Summary Impairments Pain,ROM,Strength,Balance, Coordination,Sensation,Tone, Cognition,Bed Mobility, Transfers,Gait,Activity Tolerance Assessment Summary pt is an 88 y/o F s/p fall sustaining a R femoral neck fx . pt underwent R hip intramedullary fixation POD 1. pt is WBAT on RLE. pt requiring max A x 2 to total A x 2 with mobility. pt was able to completed sit to stand max A x 2 but unable to transfer with (+) R knee buckling. pt also has decrease BP in standin/37 affecting activity tolerance. pt will require SNF rehab to improve strength and function . Goals Bed Mobility Goal Moderate Assistance Transfer Goal Moderate Assistance,Front Wheeled Walker Gait Goal Moderate Assistance,Front Wheel Walker Gait Distance 25 Other Goals improve bed mobility, transfers and ambulation using FWW SBA ~ 100 ft Days to Meet Goals 10 Frequency of Treatment Frequency Of Treatment Twice a Day Treatment Plan Physical Therapy Treatment Plan Bed Mobility Training,Transfer Training,Gait Training, Therapeutic Exercise,Balance Retraining,Post Op Education, Discharge Planning,Hot or Cold Pack,Neuromuscular Re-ed, Coordination Retraining,Manual Therapy Weight Bearing Status Weight Bearing Status Weight Bear as Tolerated Allowed Weight Bearing Amount (enter % RLE WBAT or #) (%) Recommendations To Nursing Amount of Assist Needed Mechanical Lift Discharge Recommendations PT Discharge Recommendations SNF Rehab Transportation Needs at Discharge Wheelchair/Cabulance,Stretcher /Ambulance
[2024-01-24] MEDS: ESCITALOPRAM 10 MG TABLET 20 MG PO (09:12)
[2024-01-24] MEDS: MEMANTINE HCL 5 MG TABLET 10 MG PO ×2 (09:12→20:23)
[2024-01-24] MEDS: ACETAMINOPHEN 325 MG TABLET 650 MG PO ×3 (09:12→22:03)
[2024-01-24] MEDS: DOCUSATE 100 MG CAPSULE PO ×2 (09:12→20:22)
[2024-01-24] MEDS: polyethylene glycoL 3350 17 GM POWD.PACK PO (09:13)
[2024-01-24] MEDS: ENOXAPARIN 40 MG/0.4 ML SYRINGE SUBCUT (09:13)
--- NOTE | 2024-01-24 10:09 | DI.RAD.S_ITS ---
PROCEDURE: XR HIP W PEL IF DONE RT 2V INDICATIONS: ? hip dislocation R TECHNIQUE: 2 views of the hip were acquired. COMPARISON: [facility], CR, XR HIP W PEL IF DONE RT 4V, 01/23/2024, 19:14. FINDINGS: Bones: Status post open reduction internal fixation of intertrochanteric right femoral neck fracture with anterograde intramedullary alexandra and dynamic compression screw fixation. Distal interlocking screw is also present. No evidence for hardware complication. Postsurgical alignment appears anatomic. Soft tissues: No suspicious soft tissue calcifications or masses. Expected soft tissue changes of recent surgery. IMPRESSION: Status post interval open reduction and internal fixation of comminuted right intertrochanteric femoral neck fracture. No acute hardware complication. Dictated by: Adrian Akbar M.D. on 01/24/2024 at 12:09 Approved by: Adrian Akbar M.D. on 01/24/2024 at 12:10
--- NOTE | 2024-01-24 13:32 | P.PN_ITS ---
Subjective Subjective Interval history: 88 F with PMH of dementia admitted with a hip fx. She has no complaints today. Therapy and staff concerned about the appearance of her R hip with concern for dislocation. Xray ordered and no apparent dislocation on imaging. Exam Vital Signs (past 8 hours): - 01/24/24 08:50 Temperature 97.5 F L Pulse Rate 83 Respiratory Rate 18 Blood Pressure 111/44 L Pulse Oximetry 97 Oxygen Flow Rate 0 Oxygen Delivery Method Room Air Oxygen Flow Rate 0 Narrative Exam Narrative: Gen: no acute distress Pulm: CTA B/l, no distress CV: RRR no m/r/g Abd: S NT ND Ext: no edema Objective Labs 01/24/24 04:35 01/24/24 04:35 Labs: Laboratory Results - last 24 hr 01/23/24 01/24/24 18:13 04:35 WBC 13.4 H RBC 2.78 L Hgb 8.7 L Hct 25.2 L MCV 90.7 MCH 31.3 MCHC 34.5 RDW 14.0 Plt Count 166 Neut % (Auto) 77.4 H Lymph % (Auto) 6.7 L [place] % (Auto) 15.8 H Eos % (Auto) 0.0 L Baso % (Auto) 0.1 Neut # (Auto) 38701 H Lymph # (Auto) 900 L [place] # (Auto) 2100 H Eos # (Auto) 0 Baso # (Auto) 0 Sodium 133 L Potassium 4.2 Chloride 105 Carbon Dioxide 22 BUN 18 H Creatinine 0.65 Estimated GFR > 60 BUN/Creatinine Ratio 27.7 H Glucose 142 H Calcium 8.2 L Blood Type O Positive Antibody Screen Negative Crossmatch See Detail [facility] Medical History History of depression Advanced dementia Social History household members: none Smoking Status: Never smoker alcohol intake: current Assessment & Plan Assessment & Plan narrative: 1. Right femoral neck fracture, present on admission and active. 2. Ground level fall, present on admission and active. 3. Probable hypovolemic hyponatremia, present on admission and active 4. Mild hyperglycemia, present on admission and active. 5. Possible chronic atrial fibrillation not on anticoagulation, present on admission and active. 6. Severe dementia, present on admission and active. 7. Possible acute cystitis PLAN: -now s/p nail with orthopedics. continue PT/OT. repeat Xray today after concerns for possible dislocation are unremarkable, discussed with orthopedic surgery. -DVT prophylaxis. -analgesia. -fluid resuscitation and monitor sodium, improved Na from 130 to 133. No need for further IV fluids at this time. -UA positive, will treat with ceftriaxone for 3 days. Patient is DNR Anticipate discharge to halfway facility for rehabilitation after surgery. Patient has DPOA on file, Domonique, sister Patient was admitted to inpatient, anticipation of 2 midnights of medically necessary hospital level care. Discussed with case managment and bedside staff along with orthopedics team, formulate the above assessment and plan.
--- NOTE | 2024-01-24 14:17 | P.PN_ITS ---
Subjective Subjective Date Patient Seen: 01/24/24 Time Patient Seen: 10:30 Interval history: Patient is significantly demented. Exam Vital Signs (past 8 hours): - 01/24/24 08:50 Temperature 97.5 F L Pulse Rate 83 Respiratory Rate 18 Blood Pressure 111/44 L Pulse Oximetry 97 Oxygen Flow Rate 0 Oxygen Delivery Method Room Air Oxygen Flow Rate 0 Narrative Exam Narrative: 88-year-old female resting comfortably in bed in no apparent distress. Right hip dressing is clean, dry and intact. Motor functions intact right lower extremity. Sensation grossly intact light touch. She has good capillary refill bilateral lower extremities. Const Orientation: confused Objective Labs 01/24/24 04:35 01/24/24 04:35 Labs: Laboratory Results - last 24 hr 01/23/24 01/24/24 18:13 04:35 WBC 13.4 H RBC 2.78 L Hgb 8.7 L Hct 25.2 L MCV 90.7 MCH 31.3 MCHC 34.5 RDW 14.0 Plt Count 166 Neut % (Auto) 77.4 H Lymph % (Auto) 6.7 L [place] % (Auto) 15.8 H Eos % (Auto) 0.0 L Baso % (Auto) 0.1 Neut # (Auto) 14840 H Lymph # (Auto) 900 L [place] # (Auto) 2100 H Eos # (Auto) 0 Baso # (Auto) 0 Sodium 133 L Potassium 4.2 Chloride 105 Carbon Dioxide 22 BUN 18 H Creatinine 0.65 Estimated GFR > 60 BUN/Creatinine Ratio 27.7 H Glucose 142 H Calcium 8.2 L Blood Type O Positive Antibody Screen Negative Crossmatch See Detail [facility] Medical History History of depression Advanced dementia Social History household members: none Smoking Status: Never smoker alcohol intake: current Assessment & Plan Post-op Postoperative Procedures: Procedures Operation Date: 01/23/24 18:00 Actual Procedure Side Surgeon p RIGHT PROXIMAL FEMUR INTERMEDULLARY FIXATION Right Jeff Schumacher MD Postoperative day: 1 Postoperative status narrative: Stable Postoperative plan narrative: Per hospitalist note therapy and nursing staff were concerned about the appearance and the rotation her right lower extremity. The hospitalist ordered an x-ray concern about dislocation. X-rays per radiology report shows status post interval open reduction internal fixation of comminuted right intertrochanteric femoral neck fracture. No acute hardware complication. Per Dr. Schumacher's operative note patient may be weight-bearing as tolerated right lower extremity. Keep dressing clean and dry. Follow up outpatient orthopedic clinic with Dr. Schumacher in 2 weeks.
--- NOTE | 2024-01-24 14:48 | PT.IPTN ---
Current Diagnoses Fracture of unspecified part of neck of right femur, initial encounter for closed fracture (01/22/24) Surgery Performed Operation Date: 01/23/24 18:00 Actual Procedures p RIGHT PROXIMAL FEMUR INTERMEDULLARY FIXATION(Right) - Jeff Schumacher MD Physical Therapy Treatment Note M2 PT-IP Current Condition Start: 01/24/24 12:06 Freq: NEEDED Status: Active Protocol: Document 01/24/24 09:00 AB (Rec: 01/24/24 12:26 AB [id number]) Physical Therapy Current Condition Current Condition Evaluation Date 01/24/24 Treatment Diagnosis s/p R hip ORIF; difficulty in walking Onset Date 01/22/24 M3 PT-IP Subjective Start: 01/24/24 12:06 Freq: NEEDED Status: Active Protocol: Document 01/24/24 15:19 TS (Rec: 01/24/24 15:29 TS [id number]) Subjective Physical Therapy Visit Type Type Treatment Note Visit Start Time 14:48 Visit Stop Time 15:17 Number of LEADERSHIP COACH Visits 1 Physical Therapy Visit Comments Patient Comments Pt found resting in bed pleasantly confused, She reports some pain with mobility, is agreeable to PT. Therapy Pain Assessment Pain When Pain Assessed During Mobility Pain Present Pain Present Pain Reported M4 PT-IP Mobility and Gait Start: 01/24/24 12:06 Freq: NEEDED Status: Active Protocol: Document 01/24/24 15:19 TS (Rec: 01/24/24 15:29 TS [id number]) PT-Bed Mobility Assessment Supine to Sit Supine to Sit Maximum Assistance,1 Person Assistance,Head of Bed Elevated,Bedrails Scooting Scooting to Edge of Bed Maximum Assistance PT-Transfer Assessment Sit to and From Stand Sit to and from Stand Maximum Assistance,1 Person Assistance,Use of Upper Extremities Equipment Transfer Assistive Device Gait Belt,Front Wheeled Walker Orthotic/Prosthetic Devices or Brace: No Transfers Transfer Destination Chair Transfer Technique Stand Step Pivot Transfer Ability Level of Assist Maximum Assistance Comments Mobility Comments Bp supine 124/53 prior to mobility. Supine to sit MaxA with max cues for seqeuncing, pt required assist with LEs and uprighting trunk to sitting position. Pt sat EOB SBA with FWW, Bp in sitting 130/53. STS x1 MaxA, pt could not fully come into standing. STS x1 MaxA with FWW, pt required cues for upright posture and weight forward, pt retroleans. Stand step pivot MaxA initially with FWW, pt having difficulty taking steps . Stand step pivot with no AD and MaxA, pt shuffled feet to chair. She was left in chair with alarm on, all needs met, friend in room, RN notified. Gait Assessment Comments Gait Comments Stand step pivot transfer PT-Balance Assessment Sitting Balance and Reactions Static Sitting Balance Ability Fair Dynamic Sitting Balance Ability Poor Standing Balance and Reactions Static Standing Balance Ability Poor Dynamic Standing Balance Ability Poor Device Used FWW M5 PT-IP Objective Assessments Start: 01/24/24 12:06 Freq: NEEDED Status: Active Protocol: Document 01/24/24 09:00 AB (Rec: 01/24/24 12:26 AB [id number]) Orientation Orientation/Cognition Level of Alertness Alert Orientation Name,Birthday Safety Awareness Decreased Safety Awareness Memory Description Short Term Impaired,Shelter Impaired Gross Range of Motion Lower Extremity ROM Assessment Within Functional Limits Strength Lower Extremity Strength Assessment Right Impaired Hip 3-/5 Knee 3+/5 Ankle 3+/5 Sensation Assessment Sensation Gross Sensation WNL Muscle Tone Muscle Tone WNL Yes M6 PT-IP Treatment Start: 01/24/24 12:06 Freq: NEEDED Status: Active Protocol: Document 01/24/24 15:19 TS (Rec: 01/24/24 15:29 TS [id number]) Physical Therapy Treatment Education Education Provided Precautions,Weight Bearing Status,Post-Op Packet,Safety M7 PT-IP Assessment and Plan Start: 01/24/24 12:06 Freq: NEEDED Status: Active Protocol: Document 01/24/24 15:19 TS (Rec: 01/24/24 15:29 TS [id number]) PT Summary Assessment and Plan Potential Rehabilitation Potential Fair Summary Impairments Pain,ROM,Strength,Balance, Coordination,Sensation,Tone, Cognition,Bed Mobility, Transfers,Gait,Activity Tolerance Progress Towards Goals Slow Progress due to Pain,Slow Progress due to Medical Issues,Slow Progress due to Activity Tolerance Assessment Summary Negra is making slow progress with her mobility. Shee requires MaxA for all bed mobility and for STS with use of FWW. She performed stand step pivot to chair initially with FWW but pt could not step with feet, required no AD and MaxA to get to chair. She is confused but follows instructions well. PT is recommending SNF. Goals Bed Mobility Goal Moderate Assistance Transfer Goal Moderate Assistance,Front Wheeled Walker Gait Goal Moderate Assistance,Front Wheel Walker Gait Distance 25 Other Goals improve bed mobility, transfers and ambulation using FWW SBA ~ 100 ft Days to Meet Goals 10 Frequency of Treatment Frequency Of Treatment Twice a Day Treatment Plan Physical Therapy Treatment Plan Bed Mobility Training,Transfer Training,Gait Training, Therapeutic Exercise,Balance Retraining,Post Op Education, Discharge Planning,Hot or Cold Pack,Neuromuscular Re-ed, Coordination Retraining,Manual Therapy Weight Bearing Status Weight Bearing Status Weight Bear as Tolerated Allowed Weight Bearing Amount (enter % RLE WBAT or #) (%) Recommendations To Nursing Amount of Assist Needed Mechanical Lift Discharge Recommendations PT Discharge Recommendations SNF Rehab Transportation Needs at Discharge Wheelchair/Cabulance,Stretcher /Ambulance
--- NOTE | 2024-01-24 16:00 | CM.DPNOTE ---
DCP Note RAILROAD DINING CAR STEWARD/STEWARDESS reviewed EMR. Per provider, could dc either tomorrow or Thurs to SNF or back to [facility] in [place]. PT rec SNF placement at this time. Per previous CM notes, preference to dc either to [facility] or for rehab. Per RN, pt able to follow directions and is pleasant. RAILROAD DINING CAR STEWARD/STEWARDESS spoke with Jes at [facility]- agreed to review. Could likely accept either Tue or . RAILROAD DINING CAR STEWARD/STEWARDESS spoke with Tanya at [facility]- on board with plan. Per AZEEM Martínez has asked that [facility] update them and that [facility] relayed messages through [facility]. RAILROAD DINING CAR STEWARD/STEWARDESS met with pt and Financial POA/Friend Stephany ([phone]) in room. Pt pleasant and chatty throughout interaction, seemed to follow along with dcp conversation. Agreeable to [facility] for rehab prior to returning home. Provider signed PASSR. Need to fax to Jo. Plan: anticipate dc to [facility] either Tue or . CM team will confirm acceptance/arrange transport when able. CM team will follow closely. CARLOTA Andrade
[2024-01-24] MEDS: SENNOSIDES 8.6 MG TABLET 17.2 MG PO (20:22)
[2024-01-24] MEDS: cefTRIAXone 1,000 MG in SODIUM CHLORIDE 0.9% 100 ML 200 MG IV (20:22)
[2024-01-24 20:34] VITALS: BP 121/54; PULSE 86; RESP 17; TEMP 36.6; O2SAT 96
[2024-01-25 04:32] LABS: Add Manual Diff / Slide Review NO; Basophils Absolute Auto 100 /uL (0-100); Basophils Percent Auto 0.9 % (0-2); Eosinophils Absolute Auto 200 /uL (0-450); Eosinophils Percent Auto 1.3 % (2-4); Hematocrit 22.4 % (36-46); Hemoglobin 7.7 g/dL (12.0-16.0); Lymphocytes Absolute Auto 1900 /uL (1100-4500); Lymphocytes Percent Auto 15.8 % (25-40); Mean Corpuscular HGB Conc 34.4 % (30-36); Mean Corpuscular Hemoglobin 30.9 PG (26-34); Mean Corpuscular Volume 89.9 fL (80-100); Monocytes Absolute Auto 2900 /uL (0-900); Neutrophils Absolute Auto 6900 /uL (1500-7000); Platelet Count 164 X10^3/uL (150-400); Red Cell Distribution Width 14.6 % (11.6-14.8); White Blood Cell Count 11.9 X10^3/uL (4.5-11.0)
[2024-01-25 04:54] LABS: Blood Urea Nitrogen 21 mg/dL (7-17); Calcium 8.2 mg/dL (8.4-10.2); Carbon Dioxide 24 mmol/L (22-32); Chloride 104 mmol/L (98-107); Estimated Glomerular Filt Rate > 60 mL/min (>60); Glucose 125 mg/dL (80-110); HEMOLYSIS < 15 (0-50); Potassium 4.2 mmol/L (3.4-5.1); Sodium 130 mmol/L (137-145)
--- NOTE | 2024-01-25 06:59 | P.PN_ITS ---
Subjective Subjective Date Patient Seen: 01/25/24 Time Patient Seen: 06:59 Interval history: Patient was found sleeping in her bed. She is easily awoken is able to respond to direct questions. She states that she had no pain throughout the night was able to rest throughout the evening. Denies any numbness or tingling down her right leg. Denies any nausea vomiting fever or chills. Exam Vital Signs (past 8 hours): Oxygen Delivery Method Room Air Oxygen Flow Rate 0 Narrative Exam Narrative: Seeing appears to be well-maintained. No signs of drainage. Nontender to palpation along the border of the surgical site. No pain along posterior thigh or calf. A flex against resistance at the ankle. Sensation is grossly intact throughout the right lower extremity. Const General: cooperative and comfortable Resp Effort & Inspection: normal respiratory effort and able to speak in complete sentences Objective Labs 01/25/24 04:15 01/25/24 04:15 Labs: Laboratory Results - last 24 hr 01/25/24 04:15 WBC 11.9 H RBC 2.50 L Hgb 7.7 L Hct 22.4 L MCV 89.9 MCH 30.9 MCHC 34.4 RDW 14.6 Plt Count 164 Neut % (Auto) 58.0 Lymph % (Auto) 15.8 L [place] % (Auto) 24.0 H Eos % (Auto) 1.3 L Baso % (Auto) 0.9 Neut # (Auto) 6900 Lymph # (Auto) 1900 [place] # (Auto) 2900 H Eos # (Auto) 200 Baso # (Auto) 100 Sodium 130 L Potassium 4.2 Chloride 104 Carbon Dioxide 24 BUN 21 H Creatinine 0.70 Estimated GFR > 60 BUN/Creatinine Ratio 30.0 H Glucose 125 H Calcium 8.2 L [facility] Medical History History of depression Advanced dementia Social History household members: none Smoking Status: Never smoker alcohol intake: current Assessment & Plan Post-op Postoperative Procedures: Procedures Operation Date: 01/23/24 18:00 Actual Procedure Side Surgeon p RIGHT PROXIMAL FEMUR INTERMEDULLARY FIXATION Right Jeff Schumacher MD Postoperative day: 2 Postoperative status: doing well and anemia Postoperative plan: routine post-op care Postoperative plan narrative: Notify hospitalist of H&H, BP, and sodium. Per Dr. Schumacher's operative note patient may be weight-bearing as tolerated right lower extremity. Continue to work with inpatient PT. Keep dressing clean and dry. CM reporting they will try to discharge to SNF today or tomorrow. Follow up outpatient orthopedic clinic with Dr. Schumacher in 2 weeks. Time Spent With Patient Time with patient: less than 15 minutes Quality VTE Deep Vein Thrombosis/Pulmonary Embolism Present on Admission: No
[2024-01-25 08:00] VITALS: BP 127/54; PULSE 98; RESP 18; TEMP 36.6; O2SAT 96
[2024-01-25] MEDS: DOCUSATE 100 MG CAPSULE PO (08:26)
[2024-01-25] MEDS: ESCITALOPRAM 10 MG TABLET 20 MG PO (08:26)
[2024-01-25] MEDS: MEMANTINE HCL 5 MG TABLET 10 MG PO (08:26)
[2024-01-25] MEDS: ENOXAPARIN 40 MG/0.4 ML SYRINGE SUBCUT (08:26)
[2024-01-25] MEDS: cefTRIAXone 1,000 MG in SODIUM CHLORIDE 0.9% 100 ML 200 MG IV (08:26)
[2024-01-25] MEDS: polyethylene glycoL 3350 17 GM POWD.PACK PO (08:27)
--- NOTE | 2024-01-25 11:41 | PM.DS.1 ---
History of Present Illness History of Present Illness Chief complaint: GLF/ R hip pain Narrative: The patient is an 88-year-old female who presents with a ground level fall and hip fracture. She denies any other injury. She states that she lives alone. She appears to have some degree of cognitive impairment. Laboratory testing also reveals a leukocytosis and a sodium of 130. She is mild hyperglycemia. She is also hypertensive initially at 190/88. She has fairly severe cognitive impairment and apparently stays in a memory care unit in [place]. She is noted to have probable atrial fibrillation in the emergency department. Her chronic medications appear to include amantadine and citalopram. The patient denies any complaints other than her right hip. She really can not detail the nature of the fall. She denies any dyspnea or chest pain. Discussed with orthopedics, Dr. Schumacher. The earliest that she would have repair would be tomorrow evening. She can be NPO after being evaluated tomorrow morning from his opinion. Discharge Providers Provider Date of admission: 01/22/24 17:06 Discharge Date: 01/25/24 Consults: 01/22/24 17:54 Consult to Occupational Therapy Evaluate & Treat Comment: Physician Instructions: Evaluate and treat 01/22/24 19:01 Consult to Pastoral Services Routine Comment: patient request 01/23/24 20:16 Consult to Discharge Planning Routine Comment: Consult to Physical Therapy Evaluate & Treat Comment: Physician Instructions: Evaluate and Treat 01/24/24 14:59 Consult to Orthopedic Surgery Routine Comment: R hip fx operation on 01/23 Consulting Provider: Jeff Schumacher Reason for consultation: R hip fx Has provider been notified: Yes 01/25/24 08:34 Consult to Occupational Therapy Evaluate & Treat Comment: Physician Instructions: Evaluate and treat Discharge provider: Darío Ross DO Summary Hospital Course Discharge Diagnosis: 1. Right femoral neck fracture, present on admission and active. 2. Ground level fall, present on admission and active. 3. Probable hypovolemic hyponatremia, present on admission and active 4. Mild hyperglycemia, present on admission and active. 5. Possible chronic atrial fibrillation not on anticoagulation due to falls, present on admission and active. 6. Severe dementia, present on admission and active. 7. Possible acute cystitis Hospital Course: Admitted for fall at home resulting in R hip fracture. Had successful surgery to repair hip. Found to have UTI so finished 3 days of rocephin. Discharged to SNF per PT recs. Exam Vital Signs (past 8 hours): - 01/25/24 08:00 Temperature 97.9 F Pulse Rate 98 H Respiratory Rate 18 Blood Pressure 127/54 L Pulse Oximetry 96 Oxygen Flow Rate 0 Oxygen Delivery Method Room Air Oxygen Flow Rate 0 Narrative Exam Narrative: Gen: no acute distress Pulm: CTA B/l, no distress CV: RRR no m/r/g Abd: S NT ND Ext: no edema Objective Labs 01/25/24 04:15 01/25/24 04:15 Labs: Laboratory Results - last 24 hr 01/23/24 01/25/24 18:13 04:15 WBC 11.9 H RBC 2.50 L Hgb 7.7 L Hct 22.4 L MCV 89.9 MCH 30.9 MCHC 34.4 RDW 14.6 Plt Count 164 Neut % (Auto) 58.0 Lymph % (Auto) 15.8 L [place] % (Auto) 24.0 H Eos % (Auto) 1.3 L Baso % (Auto) 0.9 Neut # (Auto) 6900 Lymph # (Auto) 1900 [place] # (Auto) 2900 H Eos # (Auto) 200 Baso # (Auto) 100 Sodium 130 L Potassium 4.2 Chloride 104 Carbon Dioxide 24 BUN 21 H Creatinine 0.70 Estimated GFR > 60 BUN/Creatinine Ratio 30.0 H Glucose 125 H Calcium 8.2 L Blood Type O Positive Antibody Screen Negative Crossmatch See Detail [facility] Medical History History of depression Advanced dementia Social History household members: none Smoking Status: Never smoker alcohol intake: current Discharge Plan Discharge Plan Patient Disposition: SNF Discharge orders & Medications Prescriptions: New ciprofloxacin HCl [Cipro] 500 mg tablet 500 mg PO BID 6 Days Qty: 12 0RF Rx Instructions: start on Continued loperamide [Anti-Diarrheal (loperamide)] 2 mg Capsule 2 mg PO QID MDD 8 tab PRN (Reason: Diarrhea) magnesium hydroxide [Milk of Magnesia] 400 mg/5 mL Suspension 30 ml PO BEDTIME PRN (Reason: Constipation) escitalopram oxalate 20 mg Tablet 20 mg PO DAILY memantine 5 mg Tablet 10 mg PO BID acetaminophen [Tylenol] 325 mg Capsule 650 mg PO Q6H PRN (Reason: Pain, Moderate) Visit Report/Discharge Packet Stand Alone Forms: Patient Portal/API, Stroke Signs & Symptoms Quality VTE Deep Vein Thrombosis/Pulmonary Embolism Present on Admission: No
--- NOTE | 2024-01-25 11:54 | PT-IP ANOTE ---
pt with hgb 7.7 and hct 22.4 and will be receiving transfusion. pt on hold this morning for PT. will f/u.
[2024-01-25 11:58] VITALS: BP 116/49; PULSE 94; RESP 16; TEMP 37.1
[2024-01-25 12:25] VITALS: BP 127/43; PULSE 91; RESP 18; TEMP 37.2
--- NOTE | 2024-01-25 12:44 | OT.IPNOTE ---
Pt to get blood transfusion and then discharge to skilled rehab, defer to skilled OT for OT goals.
--- NOTE | 2024-01-25 13:43 | CM.DPNOTE ---
Addendum entered by CARLOTA Andrade 01/25/24 17:12: MILK DELIVERY DRIVER emailed dc summary to Jes at [facility]. SL Original Note: DCP Note MILK DELIVERY DRIVER reviewed EMR. Per hospitalist, pt getting blood today and then can dc to [facility]. MILK DELIVERY DRIVER coordinated with Jes. Can accept today in afternoon. ROSA Tello kindly agreed to arrange [facility] transport for 1430 today. MILK DELIVERY DRIVER updated provider/RN/Jes at [facility]. MILK DELIVERY DRIVER faxed level 2 exempt PASRR to Jo and reggie to update her on pt's dc. ROSA Tello kindly agreed to email med list/clinicals/diet order/PASRR to Jes. ROSA Tello placed signed med list and PASRR in pt's chart. MILK DELIVERY DRIVER emailed Jes with info on financial/healthcare POAs. MILK DELIVERY DRIVER updated pt. Pt excited and agreeable with plan. MILK DELIVERY DRIVER gave RN report number to RN. ROSA Tello updated BUS GREASER. MILK DELIVERY DRIVER updated Stephany/financial POA. reports she plans to be there to sign papers at [facility]. Reports she will drive paper's to sister/healthcare POA to sign if need be. MILK DELIVERY DRIVER updated Tanya at [facility]. In agreement with plan for pt to return to [facility] following rehab. Plan: pt to dc today to [facility] at 1430 via Kathy, friend/POA Stephany to meet pt there to sign paperwork. CM team will follow as needed. CARLOTA Andrade
--- NOTE | 2024-01-25 14:27 | PT-IP ANOTE ---
checked on pt and pt still receiving transfusion. per field nurse case manager's not: pt will d/c at 230pm today . confirmed with nurse.
[2024-01-25 14:32] VITALS: BP 128/51; PULSE 101; RESP 18; TEMP 36.5
--- NOTE | 2024-01-25 15:02 | PC.NURSE ---
Addendum entered by Gosia King R.N. 01/25/24 17:21: This nurse called again and gave report to Laura at 1720. Addendum entered by Gosia King R.N. 01/25/24 16:35: This nurse called again to attempt to give report at 1635, no answer but left another message for someone to call back. Original Note: Pt discharged to [facility] at 1450, escorted off floor in wheelchair accompanied by facility designee. IV removed following completion of blood transfusion. Discharge instructions sent in packet with facility designee, all belongings left with patient. This nurse attempted to call report to [phone], waited on hold for 10 minutes, then left message after being transferred to a different number. Will attempt to call report again in 15 min.
== END 2024-01-25 15:15 | DRG 481 ==
LOC: ED 15:02 → AC 17:06
PROVIDERS: Orthopaedic Surgery; Admitting Provider Hospitalist; Emergency Provider Emergency Medicine; Referring Provider Emergency Medicine; Visit Provider Hospitalist
PROC: 0QS606Z Reposition Right Upper Femur with Intramedullary Internal Fixation Device, Open Approach (ICD-10-PCS; CPT 27245; principal; 2024-01-23 18:00)
DX: S72.141A Displaced intertrochanteric fracture of right femur, initial encounter for closed fracture (principal); D62 Acute posthemorrhagic anemia; E87.1 Hypo-osmolality and hyponatremia; I48.20 Chronic atrial fibrillation, unspecified; N30.00 Acute cystitis without hematuria; R73.9 Hyperglycemia, unspecified; F03.C0 Unspecified dementia, severe, without behavioral disturbance, psychotic disturbance, mood disturbance, and anxiety; W18.30XA Fall on same level, unspecified, initial encounter
CPT/HCPCS: 36415; 36430; 71045; 72192; 73501; 73502; 73503; 76000; 80048; 80053; 81001; 85025; 86850; 86900; 86901; 87077; 87086; 87186; 93005; 96374; 97163; 97530; 99284; P9016; J0171; J0690; J0696; J1100; J1170; J1644; J1650; J2405; J3010